=== PATIENT | male | born 1940 | race Caucasian/White ===

== ENCOUNTER 2018-10-10 17:57 | Emergency (ER) | payer MEDICARE, BC ==
[2018-10-10] MEDS ORDERED: SODIUM CHLORIDE 0.9% 1,000 ML IV STA (18:43)
[2018-10-10 18:49] VITALS: RESP 14
--- NOTE | 2018-10-10 18:56 | ED ---
General Adult HPI - General Chief complaint: Recheck/Abnormal Lab/Rx Stated complaint: Sent by DR, EKG & blood work Time Seen by Provider: 10/10/18 18:29 Source: patient, family Mode of arrival: wheelchair Limitations: no limitations - History of Present Illness Initial comments: Dictation was produced using [employer] dictation software. please excuse any grammatical, word or spelling errors. Chief Complaint: 77-year-old male past medical history pancreatic cancer sent in by oncologist for dehydration and EKG. History of Present Illness: Patient is 77-year-old female she was sent in by her oncologist for dehydration, EKG and labs. Patient was told to go to the emergency department near [facility] were his oncologist is however patient's felt that that was too far from home. Instead it was agreed upon that they come to [facility]. Patient has a past medical history pancreatic cancer. No history of atrial fibrillation. There was some concern that patient was sent here for irregular pulse concerning for atrial fibrillation. Patient otherwise feels well. The ROS documented in this emergency department record has been reviewed and confirmed by me. Those systems with pertinent positive or negative responses have been documented in the HPI. All other systems are other negative and/or noncontributory. PHYSICAL EXAM: General Impression: Alert and oriented x3, not in acute distress HEENT: Normocephalic atraumatic, extra-ocular movements intact, pupils equal and reactive to light bilaterally, mucous membranes moist. Cardiovascular: Heart regular rate and rhythm, S1&S2 audible, no murmurs, rubs or gallops Chest: Lungs clear to auscultation bilaterally, no rhonchi, no wheeze, no rales Abdomen: Bowel sounds present, abdomen soft, non-tender, non-distended, no organomegaly Musculoskeletal: Pulses present and equal in all extremities, no peripheral edema Motor: Power 5/5 bilaterally, no focal deficits noted Neurological: CN II-XII grossly intact, no focal motor or sensory deficits noted Skin: Intact with no visualized rashes Psych: Normal affect and mood ED course: 77-year-old male presents with instruction from oncologist come for electrolyte check, EKG and intravenous fluids. All signs upon arrival shows heart rate of 66, rest of vital signs within acceptable limits. Patient is well -appearing with no significant points at this time. EKG shows sinus rhythm with sinus arrhythmia.Laboratory evaluation obtained. Mild leukocytosis 11.2 likely secondary to stress part sodium is 136. Rest of metabolic panel is negative. Abdominal labs are unremarkable. We mildly dehydrated. Is given intravenous fluids. No nausea or vomiting. Patient clear for discharge. Advised to follow up with primary care physician. EKG interpretation: Ventricular rate 80, NH interval 170, QS 84, QTc 454. No NH prolongation, no QTC prolongation, no ST or T-wave changes noted. Overall, this EKG is unremarkable - Related Data Home Medications Medication Instructions Recorded Confirmed Atenolol [Tenormin] 100 mg PO DAILY 04/13/15 04/13/15 amLODIPine [Norvasc] 2.5 mg PO HS 04/13/15 04/13/15 Previous Rx's Medication Instructions Recorded HYDROcodone/APAP 5-325MG [Elim 1 each PO Q6HR PRN #20 tab 04/15/15 5-325] Mesalamine [Pentasa] 1,000 mg PO QID #120 capsule.er 04/15/15 Pantoprazole Sodium [Protonix] 40 mg PO DAILY #30 tablet. 04/15/15 predniSONE See Taper PO DIRECTED #147 tab 04/15/15 Allergies Allergy/AdvReac Type Severity Reaction Status Date / Time No Known Drug Allergies Allergy Unknown Verified 10/10/18 17:58 Review of Systems ROS Statement: Those systems with pertinent positive or pertinent negative responses have been documented in the HPI. ROS Other: All systems not noted in ROS Statement are negative. Past Medical History Past Medical History: Coronary Artery Disease (CAD), Hyperlipidemia, Hypertension, Sleep Apnea/CPAP/BIPAP Additional Past Medical History / Comment(s): 04/13/15 Pt direct admission for rectal bleed which started about 4-6 weeks ago. He has had decreased apetite, wt loss and diarrhea and bloody stools at times. Other HX: Pt currently off statin due to muscle pain and blood tests improved, bronchitis- possible pneumonia October 2014-was on ABX for awhile trying to cure, arthiritis neck, shoulders, lower back and bilateral knees, rare R leg numbness due to possible pinced nerve, has been told by physicians that he has sleep apnea-never tested- no device. History of Any Multi-Drug Resistant Organisms: None Reported Past Surgical History: Heart Catheterization, Hernia Repair Additional Past Surgical History / Comment(s): Pt has had several colonoscopies with benign polypectomies with last one being 05/2014 colonoscopy with 3 benign polypectomies. 2002 [facility], 05/25/06 Ccath with moderate disease in the proximal and mid LAD treated medically, L inguinal hernia repair, bilateral knees injected x 2 with hyaline. Past Anesthesia/Blood Transfusion Reactions: No Reported Reaction Additional Past Anesthesia/Blood Transfusion Reaction / Comment(s): Pt has never recieved blood. Past Psychological History: No Psychological Hx Reported Smoking Status: Former smoker Past Alcohol Use History: Occasional - Past Family History Father Family Medical History: Cancer Additional Family Medical History / Comment(s): Father had skin cancer on his back. General Exam Limitations: no limitations Course Vital Signs 10/10/18 10/10/18 10/10/18 17:58 18:40 18:48 Temperature 98.2 F 97.8 F Pulse Rate 52 L 66 75 Respiratory 18 14 Rate Blood Pressure 99/59 100/68 111/68 O2 Sat by Pulse 98 98 Oximetry Medical Decision Making - Lab Data Result diagrams: 10/10/18 18:21 10/10/18 18:21 Lab Results 10/10/18 10/10/18 Range/Units 18:21 18:21 WBC 11.2 H (3.8-10.6) k/uL RBC 4.20 L (4.30-5.90) m/uL Hgb 13.1 (13.0-17.5) gm/dL Hct 40.4 (39.0-53.0) % MCV 96.2 (80.0-100.0) fL MCH 31.2 (25.0-35.0) pg MCHC 32.4 (31.0-37.0) g/dL RDW 14.5 (11.5-15.5) % Plt Count 288 (150-450) k/uL Neutrophils % 88 % Lymphocytes % 7 % Monocytes % 4 % Eosinophils % 0 % Basophils % 0 % Neutrophils # 9.9 H (1.3-7.7) k/uL Lymphocytes # 0.7 L (1.0-4.8) k/uL Monocytes # 0.4 (0-1.0) k/uL Eosinophils # 0.0 (0-0.7) k/uL Basophils # 0.0 (0-0.2) k/uL Sodium 136 L (137-145) mmol/L Potassium 3.9 (3.5-5.1) mmol/L Chloride 102 (98-107) mmol/L Carbon Dioxide 25 (22-30) mmol/L Anion Gap 9 mmol/L BUN 12 (9-20) mg/dL Creatinine 0.88 (0.66-1.25) mg/dL Est GFR (CKD-EPI)AfAm >90 (>60 ml/min/1.73 sqM) Est GFR (CKD-EPI)NonAf 83 (>60 ml/min/1.73 sqM) Glucose 100 H (74-99) mg/dL Calcium 9.0 (8.4-10.2) mg/dL Magnesium 1.8 (1.6-2.3) mg/dL Total Bilirubin 0.8 (0.2-1.3) mg/dL Conjugated Bilirubin 0.0 (0.0-0.3) mg/dL Unconjugated Bilirubin 0.4 (0.0-1.1) mg/dL Delta Bilirubin 0.4 H (0.0-0.2) mg/dL AST 99 H (17-59) U/L ALT 49 (21-72) U/L Alkaline Phosphatase 308 H (38-126) U/L Total Protein 6.4 (6.3-8.2) g/dL Albumin 3.2 L (3.5-5.0) g/dL Lipase 152 (23-300) U/L Disposition Clinical Impression: Arrhythmia, Dehydration Disposition: HOME SELF-CARE Condition: Good Instructions (If sedation given, give patient instructions): Dehydration (ED) Is patient prescribed a controlled substance at d/c from ED?: No Referrals: Chelsea Durán MD [Primary Care Provider] - 1-2 days Time of Disposition: 19:34
[2018-10-10 19:18] LABS: ALT 49 U/L (21-72); AST 99 U/L (17-59); Albumin 3.2 g/dL (3.5-5.0); Alkaline Phosphatase 308 U/L (38-126); Anion Gap 9 mmol/L; Bilirubin, Delta 0.4 mg/dL (0.0-0.2); Bilirubin,Unconjugated 0.4 mg/dL (0.0-1.1); Blood Urea Nitrogen 12 mg/dL (9-20); Carbon Dioxide 25 mmol/L (22-30); Chloride 102 mmol/L (98-107); Glucose 100 mg/dL (74-99); Lipase 152 U/L (23-300); Magnesium 1.8 mg/dL (1.6-2.3); Potassium 3.9 mmol/L (3.5-5.1); Sodium 136 mmol/L (137-145); Total Bilirubin 0.8 mg/dL (0.2-1.3); Total Protein 6.4 g/dL (6.3-8.2)
[2018-10-10 19:20] LABS: Basophils % (A) 0 %; Eosinophils % (A) 0 %; HCT 40.4 % (39.0-53.0); HGB 13.1 gm/dL (13.0-17.5); Lymphocytes # (A) 0.7 k/uL (1.0-4.8); Lymphocytes % (A) 7 %; MCH 31.2 pg (25.0-35.0); MCHC 32.4 g/dL (31.0-37.0); MCV 96.2 fL (80.0-100.0); Mean Platelet Volume 7.1; Monocytes # (A) 0.4 k/uL (0-1.0); Monocytes % (A) 4 %; Neutrophils # (A) 9.9 k/uL (1.3-7.7); Neutrophils % (A) 88 %; Platelet Count 288 k/uL (150-450); RDW 14.5 % (11.5-15.5); WBC 11.2 k/uL (3.8-10.6)
[2018-10-10 19:48] VITALS: BP 142/81; PULSE 68; TEMP 98
== END 2018-10-10 19:45 | disposition home or self-care (01) ==
LOC: EC 17:57
DX: I49.9 Cardiac arrhythmia, unspecified (principal); E86.0 Dehydration; D72.829 Elevated white blood cell count, unspecified; I25.10 Atherosclerotic heart disease of native coronary artery without angina pectoris; I10 Essential (primary) hypertension; Z87.891 Personal history of nicotine dependence; Z79.899 Other long term (current) drug therapy; Z85.07 Personal history of malignant neoplasm of pancreas; Z95.818 Presence of other cardiac implants and grafts
CPT/HCPCS: 36415; 80053; 82248; 83690; 83735; 85025; 93005; 96360; 99283